=== PATIENT | male | born 1960 | race African-American/Black ===

== ENCOUNTER 2018-10-22 05:28 | Day surgery (SDC) | payer MEDICARE, MEDICAID ==
[~2018-10-22] VITALS: Ht 188 cm; Wt 76.2 kg
[~2018-10-22 05:28] MED LIST: HYDROCODON-ACE1 EA10 PO; KLONOPIN1 MG PO; LISINOPRIL-HCT1 EAC7 PO
[2018-10-22 06:08] LABS: HEMATOCRIT 38.3 % (42.0-54.0); HEMOGLOBIN 13.1 g/dL (13.5-17.5); MCH 30.3 pg (26.0-34.0); MCHC 34.2 g/dL (31.0-37.0); MCV 88.5 fL (80.0-100.0); RBC 4.33 10x6/uL (4.20-6.10); RDW 15.2 % (11.5-14.5); WBC 3.6 10x3/uL (4.8-10.8)
[2018-10-22] MEDS ORDERED: PROTONIX20 MG (06:54)
[2018-10-22 07:05] VITALS: BP 129/70; Ht 188 cm; Wt 76.2 kg
--- NOTE | 2018-10-22 08:45 | NUR ---
PATIENT HAS HISTORY OF PULMONARY EMBOLISM X3, NO SCD'S PLACED DUE TO CONTRAINDICATION PER LITERATURE, ANTHAN.
--- NOTE | 2018-11-03 09:18 | OP ---
PATIENT NAME: GREGG ADAMS MEDICAL RECORD: [id number] :[birth year] LOCATION:[facility] ADMISSION DATE: SURGEON: FABI AMBRIZ MD DATE OF OPERATION: 10/22/2018 PREOPERATIVE DIAGNOSES: Lumbar spinal stenosis and foraminal stenosis at L4-L5 and L5-S1, left greater than right. PROCEDURE: Lumbar laminectomy, medial facetectomy, and foraminotomy at L4-L5 on the left and L5-S1 on the left with foraminotomies on the left and then sublaminar decompression at L4-L5 and L5-S1 with a right L4-L5 and L5-S1 foraminotomies with sublaminar decompression with METRx retractor. SURGEON: Fabi Ambriz MD REFERRING PHYSICIAN: Collins. DESCRIPTION AND TECHNIQUE: After induction of general endotracheal anesthesia, the patient was rolled prone on a Louie frame. Lumbar spine was prepped and draped in the usual sterile fashion. Fluoroscopic x-ray and spinal needle localized the L4-L5 interspace on the left side. A stab incision was created with #11 blade. Series of dilators were used to advance a METRx retractor to the L4-L5 interspace on the left side. Level was confirmed with fluoroscopic x-ray. A Midas Allan drill and microscope were used to perform a laminectomy, medial facetectomy, and foraminotomy at L4-L5 and L5-S1 on the left. Hypertrophied ligamentum flavum was removed with Cloward rongeurs. Foraminotomies were carried out at each level on the left under microscopic illumination. The spinous processes at L4 and L5 were undermined with the Midas-Allan drill. Hypertrophied ligamentum flavum was removed with Cloward rongeurs. Following this, foraminotomies were carried out on the right at L4-L5 and L5-S1 under microscopic illumination. Following this, meticulous hemostasis was maintained throughout the wound. The wounds were irrigated with copious amounts of lukewarm saline irrigant solution. Next, the retractor was removed. The fascia was closed with 2-0 Vicryl suture. The skin was closed with shraddha. A sterile dressing was applied to the wound. The patient was awakened in good condition, taken to recovery. All counts were reported as correct. Estimated blood loss was minimal. TRANSINT:[id number] Voice Confirmation ID: [id number] DOCUMENT ID: [id number] FABI AMBRIZ MD at 0918 CC: [id number] DICTATION DATE: 10/29/18 1348 SHIFT MECHANIC: 10/29/182129 [facility] 10/22/18 [place] [id number] [place] [id number]
--- NOTE | 2018-11-03 09:18 | HP ---
PATIENT: GREGG ADAMS MEDICAL RECORD: [id number] ACCOUNT: [id number] LOCATION:[facility] : [birth year] ADMISSION DATE: 10/22/18 PCP: SHANAE LA MD HISTORY AND PHYSICAL EXAMINATION CHIEF COMPLAINT: Back pain and leg pain on the left. HISTORY OF PRESENT ILLNESS: This is a 58-year-old male with a complaint of low back pain radiating to his left lower extremity for a year and a half, it has been unresponsive to the conservative treatment including epidural steroid injections and nonsteroidal anti-inflammatory drugs and narcotic analgesics. MRI scan revealed a lumbar spinal stenosis on the left at L4-L5 and L5-S1. CURRENT MEDICATIONS: Klonopin, lisinopril, hydrochlorothiazide, and Protonix. ALLERGIES: MORPHINE. SOCIAL HISTORY: He is a smoker 30 years, one-half pack per day. PAST MEDICAL HISTORY: He has a history of hypertension. FAMILY HISTORY: Negative for any anesthetic complications and negative for any relevant complications. PHYSICAL EXAMINATION: VITAL SIGNS: Height is 6 feet 2 inches, weight is 168 pounds, blood pressure is 129/70, pulse 67, and respirations are 18. GENERAL: A well-developed, well-nourished, petite-appearing male in no acute distress. LUNGS: Clear to auscultation bilaterally. CARDIOVASCULAR: He denies angina. Regular rate and rhythm without murmur or gallop. ABDOMEN: Nontender, nondistended, normoactive bowel sounds. NEUROLOGIC: He complains of pain in both lower extremities. Shows decreased light touch ____ left L4-L5 and L5-S1. MRI shows a lumbar spinal stenosis, severe at L4-L5 and L5-S1 on the left with bilateral lumbar spinal stenosis. PLAN: A lumbar laminectomy, medial facetectomy, and foraminotomy with sublaminar decompression with bilateral foraminotomy L4-L5 and L5-S1. TRANSINT:[id number] Voice Confirmation ID: [id number] DOCUMENT ID: [id number] FABI OSULLIVAN MD at 0918 CC: [id number] DICTATION DATE: 10/29/18 1345 LEAD CLINICAL RESEARCH COORDINATOR: 10/29/[address] [place] [address] 10/22/18 [place] [id number]
== END 2018-10-22 11:30 | disposition home or self-care (01) ==
LOC: D.OPS 05:28
PROVIDERS: Anesthesiology
DX: M48.061 Spinal stenosis, lumbar region without neurogenic claudication (principal)

== ENCOUNTER → 2019-02-02 07:03 | Outpatient (CLI) | payer MEDICARE, MEDICAID ==
[2018-10-22 07:05] VITALS: BMI 21.6
[~2019-02-02 07:03] MED LIST changes: +PROTONIX20 MG
== END | disposition home or self-care (01) ==
LOC: D.NM 01-20 09:45
PROVIDERS: ATTEND Orthopaedic Surgery
DX: M25.562 Pain in left knee (principal)

== ENCOUNTER → 2019-02-08 18:33 | Outpatient (CLI) | payer MEDICARE ==
[2018-10-22 07:05] VITALS: BMI 21.6
[2019-02-08 18:43] LABS: BASOPHILS 0.2 % (0-2); EOSINOPHILS 0.4 % (0-7); HEMATOCRIT 34.8 % (42.0-54.0); LYMPHOCYTES 26.5 % (15-50); MCH 31.7 pg (26.0-34.0); MCHC 34.5 g/dL (31.0-37.0); MCV 92.1 fL (80.0-100.0); MEAN PLATELET VOLUME 11.7 fL (7.4-10.4); MONOCYTES 7.1 % (2-11); NEUTROPHILS 65.8 % (40-80); RBC 3.78 10x6/uL (4.20-6.10); RDW 16.1 % (11.5-14.5); WBC 4.9 10x3/uL (4.8-10.8)
[2019-02-08 18:53] LABS: PLATELET COUNT 83 10x3/uL (130-400)
[2019-02-08 19:19] LABS: PLATELET ESTIMATE DECREASED
[2019-02-08 19:49] LABS: ERYTHROCYTE SEDIMENTATION RATE 9 mm/hr (0-20)
== END | disposition home or self-care (01) ==
LOC: D.LABREF 18:33
PROVIDERS: ATTEND Orthopaedic Surgery
DX: Z00.00 Encounter for general adult medical examination without abnormal findings (principal)

== ENCOUNTER → 2019-02-24 09:31 | Outpatient (CLI) | payer MEDICARE ==
[2018-10-22 07:05] VITALS: BMI 21.6
--- NOTE | ~2019-02-24 | HEMODYNAMI ---
PATIENT:GREGG ADAMS MEDICAL RECORD: [id number] : 64 LOCATION:[facility] ADMISSION DATE: 02/24/19 Generatedon:02/24/201911:00 Patient name: GREGG ADAMS Patient #: [id number] SSN: : 1960 Date of study: 02/24/2019 Page: Of Hemodynamic Procedure Report Patient Data Patient Demographics Procedure consent was obtained First Name: GREGG Gender: Male Last Name: BRYAN Suffix: [facility] Initial: TOÑA : 1960 Patient #: [id number] Age: 58 year(s) Race: Black Additional ID: [id number] Contact details Address: [address] [place] [address] State: [place] City: [facility] Zip code: [address] Past Medical History Allergies Allergen Reaction Date Comments Reported Other allergy 02/24/2019 morphine Admission Admission Data Admission Date: 02/24/2019 Admission Time: 9:31 Procedure Procedure Types Cath Procedure Peripheral Cath Diagnostic Procedure Miscellaneous Aspiration/Injection (Joint) Procedure Description Procedure Date Procedure Date: 02/24/2019 Procedure Start Time: 10:48 Procedure Staff Name Function Lizabeth Manzano RT Scrub Mike Huff MD Performing Physician ROSANNE LEWIS RT Monitor Procedure Data Cath Procedure Fluoroscopy Diagnostic fluoroscopy Total fluoroscopy Time: 0.1 time: 0.1 min min Diagnostic fluoroscopy Total fluoroscopy dose: 2 dose: 2 mGy mGy Hemodynamics Rest Pre Cath Intra NCS Post Cath Procedure Log Time Note 10:32:42 Lizabeth Manzano RT(R) sent for patient. Start room use. 10:32:45 Time tracking: Regular hours (M-F 7:00 - 5:00) 10:32:51 Patient received from Outpatients to IR Alert and oriented. Tansferred to table in Supine position. 10:32:57 Signed procedure consent form obtained from patient. 10:35:11 SAFE-T PLUS MYELOGRAM TRAY opened to sterile field. 10:36:09 Patient allergic to Morphine 10:36:28 Is patient on blood thinner?Yes 10:36:58 Left Knee was prepped with betadine and draped in sterile fashion. 10:45:04 Physician arrived 10:46:49 --------ALL STOP TIME OUT------ 10:48:07 Full Disclosure recording started 10:48:07 Procedure started. 10:48:17 Local anesthetic to Left Knee with Lidocaine 1% by Mike Huff MD.INITIAL ACCESS ONLY 10:50:39 Procedure ended.(Physican Out) 10:52:05 Post Left Knee:stable. Synovial fluid collected in [employer] and sent to lab for testing. Band aid applied to site and patient sent home 10:54:03 End room use (Document Last) 10:54:58 Full Disclosure recording stopped 11:00:28 Fluoroscopy time 00.10 minutes. 11:00:34 Fluoroscopy dose: 2 mGy 11:00:34 Flurop Dose total: 2 11:00:37 Procedure and supply charges have been captured, reviewed, submitted and are correct. Device Usage Item Name Manufacture Quantity Catalog Hospital Part Current Minimal Lot# / Number Charge Number Stock Stock Serial# Code SAFE-T [employer] 1 [id number] PLUS MYELOGRAM TRAY Signature Audit [place] Stage Time Signature Unsigned Intra-Procedure 02/24/2019 Lizabeth Manzano RT(R) 10:55:58 AM RT(R) 02/24/2019 10:59:57 AM Intra-Procedure 02/24/2019 Lizabeth Manzano 11:00:53 AM RT(R) Signatures Monitor : ROSANNE LEWIS RT Signature : Date : Time : [facility] [address] [place] [address]
[2019-02-24 12:44] LABS: PROTEIN - BODY FLUID 3.2 G/DL
[2019-02-24 15:23] LABS: MACROPHAGES BF 20 %; NEUT - BF 32 %
== END | disposition home or self-care (01) ==
LOC: D.SP 09:31 → D.RAD 11:00 → D.SP 11:00
PROVIDERS: Orthopaedic Surgery; ATTEND Clinical Nurse Specialist Family Health
DX: M25.462 Effusion, left knee (principal); Z01.812 Encounter for preprocedural laboratory examination

== ENCOUNTER → 2019-03-30 19:38 | Outpatient (CLI) | payer MEDICARE ==
[2018-10-22 07:05] VITALS: BMI 21.6
== END | disposition home or self-care (01) ==
LOC: D.LABREF 19:38
PROVIDERS: ATTEND Orthopaedic Surgery
DX: M25.561 Pain in right knee (principal)

== ENCOUNTER 2019-05-25 08:00 | Outpatient (CLI) | payer MEDICARE ==
[2018-10-22 07:05] VITALS: BMI 21.6
[2019-05-25 11:25] LABS: HEMATOCRIT 37.9 % (42.0-54.0); HEMOGLOBIN 12.9 g/dL (13.5-17.5); MCH 31.1 pg (26.0-34.0); MCV 91.3 fL (80.0-100.0); PLATELET COUNT 78 10x3/uL (130-400); RBC 4.15 10x6/uL (4.20-6.10); RDW 17.1 % (11.5-14.5); WBC 3.3 10x3/uL (4.8-10.8)
[2019-05-25 11:41] LABS: INR 1.2 (0.85-1.17); PROTIME 14.7 SECONDS (11.6-15.0)
[2019-05-25 11:42] LABS: APTT 38.3 SECONDS (22.8-39.4); CALC OSMOLALITY 259 mosm/kg (275-300); CALCIUM 8.5 mg/dL (8.5-10.1); CARBON DIOXIDE 23.4 mmol/L (21.0-32.0); CHLORIDE - SERUM 99 mmol/L (98-107); CREATININE - SERUM 0.9 mg/dL (0.6-1.3); GLUCOSE 180 mg/dL (74-106); POTASSIUM - SERUM 3.7 mmol/L (3.5-5.1); SODIUM 127 mmol/L (136-145); UREA NITROGEN 12 mg/dL (7-18); eGFR NON AFRICAN AMERICAN > 90 mL/min (90-120)
[2019-05-25 12:30] LABS: EOSINOPHILS 2 % (0-7); LYMPHOCYTES 51 % (15-50); MONOCYTES 14 % (2-11); NEUTROPHILS 29 % (40-80); PLATELET ESTIMATE DECREASED
[2019-05-25 12:31] LABS: ANISOCYTOSIS OCC
[2019-05-25 13:16] LABS: APPEARANCE HAZY (CLEAR); BACTERIA MODERATE /hpf (NONE SEEN); BILIRUBIN NEGATIVE (NEGATIVE); COLOR DK YELLOW (YELLOW); EPITHELIAL CELLS 0-5 /hpf (0-5); GLUCOSE 100 mg/dL (NEGATIVE); GRANULAR CAST RARE /lpf (NONE SEEN); KETONE NEGATIVE (NEGATIVE); MUCUS <1+ /lpf (NONE SEEN); NITRITE NEGATIVE (NEGATIVE); PROTEIN NEGATIVE (NEGATIVE); RED CELLS - URINE RARE /hpf (0-5); SPECIFIC GRAVITY 1.015 (1.005-1.020); WHITE CELLS - URINE 0-5 /hpf (0-5)
== END 2019-05-25 08:01 | disposition home or self-care (01) ==
LOC: D.OPS 08:00 → D.SDCHOLD 05-30 08:35 → EDSTATUS 05-30 10:00 → D.SDCHOLD 05-30 11:30
PROVIDERS: ATTEND Orthopaedic Surgery
DX: T84.418A Breakdown (mechanical) of other internal orthopedic devices, implants and grafts, initial encounter (principal)

== ENCOUNTER → 2019-06-23 16:35 | Outpatient (CLI) | payer MEDICARE ==
[2018-10-22 07:05] VITALS: BMI 21.6
[2019-06-23 17:50] LABS: CALC OSMOLALITY 279 mosm/kg (275-300); CALCIUM 8.2 mg/dL (8.5-10.1); CARBON DIOXIDE 24.6 mmol/L (21.0-32.0); CHLORIDE - SERUM 104 mmol/L (98-107); CREATININE - SERUM 0.8 mg/dL (0.6-1.3); GLUCOSE 172 mg/dL (74-106); POTASSIUM - SERUM 3.3 mmol/L (3.5-5.1); SODIUM 139 mmol/L (136-145); UREA NITROGEN 6 mg/dL (7-18); eGFR NON AFRICAN AMERICAN > 90 mL/min (90-120)
[2019-06-23 17:52] LABS: APPEARANCE CLOUDY (CLEAR); BILIRUBIN NEGATIVE (NEGATIVE); COLOR YELLOW (YELLOW); GLUCOSE 100 mg/dL (NEGATIVE); KETONE NEGATIVE (NEGATIVE); NITRITE POSITIVE (NEGATIVE); PROTEIN NEGATIVE (NEGATIVE); SPECIFIC GRAVITY 1.015 (1.005-1.020); UROBILINOGEN NORMAL (NORMAL)
[2019-06-23 17:53] LABS: BASOPHILS 0.3 % (0-2); EOSINOPHILS 1.4 % (0-7); HEMATOCRIT 30.5 % (42.0-54.0); HEMOGLOBIN 10.4 g/dL (13.5-17.5); IMMATURE GRANULOCYTES 0.3 % (0-5); MCH 31.6 pg (26.0-34.0); MCHC 34.1 g/dL (31.0-37.0); MCV 92.7 fL (80.0-100.0); MONOCYTES 6.8 % (2-11); NEUTROPHILS 41.2 % (40-80); PLATELET COUNT 69 10x3/uL (130-400); RBC 3.29 10x6/uL (4.20-6.10); WBC 2.9 10x3/uL (4.8-10.8)
[2019-06-23 18:09] LABS: PLATELET ESTIMATE DECREASED
== END | disposition home or self-care (01) ==
LOC: D.LABREF 16:35
PROVIDERS: ATTEND Orthopaedic Surgery
DX: N39.0 Urinary tract infection, site not specified (principal); M25.561 Pain in right knee

== ENCOUNTER → 2019-07-01 11:37 | Outpatient (CLI) | payer MEDICARE ==
[2018-10-22 07:05] VITALS: BMI 21.6
[2019-07-02 07:14] LABS: HEPATITIS C ANTIBODY 0.1 (0.0-0.9)
== END | disposition home or self-care (01) ==
LOC: D.LAB 11:37
PROVIDERS: ATTEND Clinical Nurse Specialist Family Health
DX: D69.6 Thrombocytopenia, unspecified (principal); R63.0 Anorexia